=== PATIENT | female | born 1955 | race Caucasian/White ===

== ENCOUNTER 2020-01-18 11:32 | Emergency (ER) | payer MEDICARE, OTHER ==
[~2020-01-18] VITALS: Ht 157.5 cm; Wt 94.3 kg
--- NOTE | 2020-01-18 11:41 | NUR ---
came in for "Chest Pain started yesterday constant not going away", non-radiating, 6/10 PS. to ER bed 1, hooked to monitor, changed to hosp gown, warm blanket provided, patient aao X 4, breathing even and unlabored. awaiting MD hess.
--- NOTE | 2020-01-18 11:42 | NUR ---
SEEN AND EXAMINED BY .
--- NOTE | 2020-01-18 11:43 | NUR ---
Dr Ford at bedside
--- NOTE | 2020-01-18 11:46 | NUR ---
Note luluone in EDM - 01/18/20 at 1318 by JERRY came in for "Chest Pain started yesterday constant not going away", non-radiating, 6/10 PS. to ER bed 1, hooked to monitor, changed to hosp gown, warm blanket provided, patient aao X 4, breathing even and unlabored. awaiting MD hess.
--- NOTE | 2020-01-18 11:55 | NUR ---
IV LINE ESTABLISHED BLOOD DRAWN AND SENT TO LAB.
[2020-01-18 12:28] LABS: BASOPHILS % (AUTO) 0.5 % (0.0-2.0); EOSINOPHILS % (AUTO) 1.1 % (0.0-6.0); HEMATOCRIT 39 % (33-45); HEMOGLOBIN 13.2 g/dL (11.5-14.8); LYMPHOCYTES # (AUTO) 1.8 /CMM (0.8-4.8); LYMPHOCYTES % (AUTO) 23.6 % (20.0-44.0); MEAN CORPUSCULAR HGB CONC 34 g/dl (31.0-36.0); MEAN CORPUSCULAR VOLUME 89 fL (82-100); MONOCYTES # (AUTO) 0.5 /CMM (0.1-1.30); MONOCYTES % (AUTO) 6.4 % (2.0-12.0); NEUTROPHILS # (AUTO) 5.1 /CMM (1.8-8.9); NEUTROPHILS % (AUTO) 68.4 % (43.0-81.0); PLATELET COUNT (AUTO) 281 /CMM (150-450); RED BLOOD CELL COUNT(AUTO) 4.43 MIL/uL (4.0-5.2); WHITE BLOOD COUNT (AUTO) 7.5 K/uL (4.3-11.0)
[2020-01-18 12:35] LABS: CALCIUM, SERUM 9.3 mg/dL (8.5-10.1); CARBON DIOXIDE 23 mmol/L (21-32); CHLORIDE 101 mmol/L (98-107); CREATININE 0.7 mg/dL (0.6-1.3); GLUCOSE 165 mg/dL (74-106); POTASSIUM 3.9 mmol/L (3.5-5.1); SODIUM SERUM 138 mmol/L (136-145); UREA NITROGEN, BLOOD 13 mg/dL (7-18)
--- NOTE | 2020-01-18 13:19 | NUR ---
IV removed. Catheter intact and site benign. Pressure and 4x4 applied to site. No bleeding noted.Patient discharged to home in stable condition. Written and verbal after care instructions given. Patient verbalizes understanding of instruction.
[2020-01-18 13:26] VITALS: BP 154/99
== END 2020-01-18 13:26 | disposition home or self-care (01) ==
LOC: ER 11:36
DX: R07.89 Other chest pain (principal); I10 Essential (primary) hypertension
CPT/HCPCS: 36415; 71045-TC; 80048-TC; 83880; 84484-TC; 85025-TC

== ENCOUNTER 2021-11-18 15:08 | Emergency (ER) | payer MEDICARE, OTHER ==
[~2021-11-18] VITALS: Ht 160 cm; Wt 90.7 kg
--- NOTE | 2021-11-18 15:30 | NUR ---
Jamaal garvey in [facility] - 11/18/21 at 1613 by MARCOS URINE SAMPLE SENT TO LAB
--- NOTE | 2021-11-18 15:41 | NUR ---
BIBSELF C/O LT FLANK PAIN X 6 DAYS. AMBULATORY, PLACED ON BED, AAOX4, IN PAIN 03/27
--- NOTE | 2021-11-18 15:42 | NUR ---
AT BED SIDE
--- NOTE | 2021-11-18 15:43 | NUR ---
[employer]PER [employer]. AT BED SIDE FOR BLOOD WORKS
--- NOTE | 2021-11-18 15:45 | NUR ---
URINE SAMPLE SENT TO LAB
[2021-11-18 16:04] LABS: BASOPHILS % (AUTO) 0.4 % (0.0-2.0); EOSINOPHILS % (AUTO) 0.8 % (0.0-6.0); HEMATOCRIT 40 % (33-45); HEMOGLOBIN 13.4 g/dL (11.5-14.8); LYMPHOCYTES # (AUTO) 2.1 K/uL (0.8-4.8); LYMPHOCYTES % (AUTO) 23.8 % (20.0-44.0); MEAN CORPUSCULAR HGB CONC 34 g/dl (31.0-36.0); MEAN CORPUSCULAR VOLUME 88 fL (82-100); MONOCYTES # (AUTO) 0.5 K/uL (0.1-1.30); NEUTROPHILS # (AUTO) 6.2 K/uL (1.8-8.9); PLATELET COUNT (AUTO) 289 K/uL (150-450); RED BLOOD CELL COUNT(AUTO) 4.56 MIL/uL (4.0-5.2)
[2021-11-18 16:37] LABS: BILIRUBIN,URINE NEGATIVE (NEGATIVE); COLOR,URINE YELLOW (YELLOW); LEUKOCYTE ESTERASE ,URINE TRACE (NEGATIVE); NITRITE, URINE NEGATIVE (NEGATIVE); PROTEIN,URINE NEGATIVE (NEGATIVE); UGLUCOSE NEGATIVE (NEGATIVE); UROBILINOGEN,URINE 0.2 EU/dL (0.2)
[2021-11-18 16:49] LABS: BACTERIA,URINE 1+ /HPF (None Seen); RBC,URINE 0-2 /HPF (0-2); SQUAMOUS EPITHELIAL CELL,UR Few /HPF (None Seen); WBC,URINE 21-50 /HPF (0-3)
[2021-11-18] MEDS ORDERED: CEFTRIAXONE 1 G in IV D5W 50 ML IV ONE (17:30)
[2021-11-18 17:44] LABS: ALBUMIN 4.4 g/dL (3.4-5.0); BILIRUBIN,DIRECT 0.1 mg/dL (0.0-0.2); BILIRUBIN,TOTAL 0.2 mg/dL (0.2-1.0); CREATININE 0.7 mg/dL (0.6-1.3); POTASSIUM 4.4 mmol/L (3.5-5.1); TOTAL PROTEIN, SERUM 8.3 g/dL (6.4-8.2)
[2021-11-18 18:00] LABS: CALCIUM, SERUM 9.5 mg/dL (8.5-10.1)
[2021-11-18] MEDS ORDERED: IBUP-1955 PO (21:13)
[2021-11-18] MEDS ORDERED: CEPH500C2 PO (21:13)
[2021-11-18 21:24] VITALS: BP 131/89
--- NOTE | 2021-11-18 21:25 | NUR ---
Patient discharged to home in stable condition. Written and verbal after care instructions given. Patient verbalizes understanding of instruction. Ms Serrano is ambulatory with a steady gait
== END 2021-11-18 21:24 | disposition home or self-care (01) ==
LOC: ER 15:29
DX: N39.0 Urinary tract infection, site not specified (principal); R10.9 Unspecified abdominal pain; I10 Essential (primary) hypertension
CPT/HCPCS: 36415; 74176; 80048; 80076; 81001; 83690; 85025; 87086; 96365; 99284; J0696; J7060

== ENCOUNTER 2022-09-05 12:46 | Emergency (ER) | payer MEDICARE, OTHER ==
[~2022-09-05] VITALS: Ht 167.6 cm; Wt 90.7 kg
[~2022-09-05 12:46] MED LIST: CEPH500C2 PO; IBUP-1955 PO
--- NOTE | 2022-09-05 13:10 | NUR ---
BIBA FOR R SIDE PELVIC PAIN. A/O X 3, TOLERATING WELL ON ROOM AIR.
--- NOTE | 2022-09-05 13:20 | NUR ---
BLOOD SAMPLES OBTAINED
[2022-09-05 14:03] LABS: BASOPHILS % (AUTO) 0.4 % (0.0-2.0); HEMATOCRIT 38 % (33-45); HEMOGLOBIN 13.2 g/dL (11.5-14.8); LYMPHOCYTES # (AUTO) 1.4 K/uL (0.8-4.8); LYMPHOCYTES % (AUTO) 22.3 % (20.0-44.0); MEAN CORPUSCULAR HGB CONC 34 g/dl (31.0-36.0); MEAN CORPUSCULAR VOLUME 86 fL (82-100); MONOCYTES # (AUTO) 0.4 K/uL (0.1-1.30); MONOCYTES % (AUTO) 6.1 % (2.0-12.0); NEUTROPHILS # (AUTO) 4.5 K/uL (1.8-8.9); NEUTROPHILS % (AUTO) 70.2 % (43.0-81.0); PLATELET COUNT (AUTO) 278 K/uL (150-450); RED BLOOD CELL COUNT(AUTO) 4.43 MIL/uL (4.0-5.2); WHITE BLOOD COUNT (AUTO) 6.4 K/uL (4.3-11.0)
[2022-09-05 14:32] LABS: CALCIUM, SERUM 9.3 mg/dL (8.5-10.1); CREATININE 0.7 mg/dL (0.6-1.3); POTASSIUM 4.3 mmol/L (3.5-5.1)
--- NOTE | 2022-09-05 14:48 | NUR ---
URINE SAMPLE OBTAINED
[2022-09-05] MEDS ORDERED: IBUP-1955 PO (16:09)
[2022-09-05 16:12] LABS: BILIRUBIN,URINE 1+ (NEGATIVE); COLOR,URINE YELLOW (YELLOW); LEUKOCYTE ESTERASE ,URINE TRACE (NEGATIVE); NITRITE, URINE NEGATIVE (NEGATIVE); PH,URINE 5.5 (5.0-8.0); PROTEIN,URINE NEGATIVE (NEGATIVE); UGLUCOSE NEGATIVE (NEGATIVE); UROBILINOGEN,URINE 0.2 EU/dL (0.2)
--- NOTE | 2022-09-05 16:18 | NUR ---
Patient discharged to home in stable condition. Written and verbal after care instructions given. Patient verbalizes understanding of instruction.
[2022-09-05 16:19] VITALS: BP 162/82
[2022-09-05 16:45] LABS: BACTERIA,URINE Few /HPF (None Seen); RBC,URINE 0-2 /HPF (0-2); SQUAMOUS EPITHELIAL CELL,UR Few /HPF (None Seen); WBC,URINE 0-2 /HPF (0-3)
== END 2022-09-05 16:19 | disposition home or self-care (01) ==
LOC: ER 12:48
DX: N83.201 Unspecified ovarian cyst, right side (principal); R10.2 Pelvic and perineal pain; I10 Essential (primary) hypertension; Z87.442 Personal history of urinary calculi; Z79.899 Other long term (current) drug therapy
CPT/HCPCS: 36415; 76856-TC; 80048-TC; 81001; 85025-TC; 85730-TC

== ENCOUNTER 2024-11-27 11:37 | Emergency (ER) | payer MEDICARE, OTHER ==
[~2024-11-27] VITALS: Ht 157.5 cm; Wt 90.7 kg
[2024-11-27] MEDS ORDERED: CEFTRIAXONE 1GM BAG (ER ONLY) 50 ML IV ONE (12:33)
[2024-11-27] MEDS ORDERED: SULFAMETH/TRIMETH 800/160 MG 1 UDTAB TABLET ONE (12:33)
[2024-11-27] MEDS ORDERED: ACETAMINOPHEN 325 MG TABLET ONE (12:33)
[2024-11-27] MEDS: IV NS 0.9% 1,000 ML BAG IV ONE (12:50)
[2024-11-27] MEDS: ACETAMINOPHEN 325 MG TABLET PO ONE (12:51)
[2024-11-27] MEDS: SULFAMETH/TRIMETH 800/160 MG 1 UDTAB TABLET PO ONE (12:51)
[2024-11-27] MEDS: CEFTRIAXONE 1 G in IV D5W 50 ML IV ONE (12:51)
[2024-11-27 13:30] VITALS: BP 141/81; TEMP 98.5; O2SAT 99
[2024-11-27] MEDS ORDERED: CEFA500C PO (13:45)
[2024-11-27] MEDS ORDERED: SULF1TAB48 PO (13:45)
[2024-11-27] MEDS ORDERED: MUPI15CR TP (14:15)
== END 2024-11-27 14:35 | disposition home or self-care (01) ==
LOC: ER 11:40
DX: M79.645 Pain in left finger(s) (principal); I10 Essential (primary) hypertension; E11.9 Type 2 diabetes mellitus without complications
CPT/HCPCS: 99284; 96365; J0696 ×2; J7060; J7030